=== PATIENT | male | born 1980 | race Caucasian/White ===

== ENCOUNTER → 2022-10-11 | Outpatient (REF) | payer SELFPAY ==
[2022-10-11 14:29] LABS: GC DNA AMPLIFICATION NEGATIVE (NEGATIVE)
== END ==
LOC: M LAB REF 10:15
PROVIDERS: ATTEND Physician Assistant
DX: R30.0 Dysuria (principal); Z20.2 Contact with and (suspected) exposure to infections with a predominantly sexual mode of transmission